=== PATIENT | male | born 2000 | race Caucasian/White ===

== ENCOUNTER 2019-05-25 22:21 | Emergency (ER) | payer SELFPAY ==
[~2019-05-25] VITALS: Ht 185.4 cm; Wt 83.9 kg
[2019-05-25 22:25] VITALS: BP_SYST 127
[2019-05-26] MEDS ORDERED: DIPH-TET-PERTUS Vaccine 0.5 ML VIAL (ADACEL) I.M. ONE (04:45)
[2019-05-26 04:46] VITALS: BP_SYST 120
== END 2019-05-26 04:46 | disposition home or self-care (01) ==
LOC: SED 22:21
DX: S01.112A Laceration without foreign body of left eyelid and periocular area, initial encounter (principal); X58.XXXA Exposure to other specified factors, initial encounter; Y93.67 Activity, basketball; Y92.89 Other specified places as the place of occurrence of the external cause; Y99.8 Other external cause status
CPT/HCPCS: 90715; 99283